=== PATIENT | male | born 1960 | race Caucasian/White ===

== ENCOUNTER 2017-07-22 21:44 | Emergency (ER) | payer OTHER ==
--- NOTE | 2017-07-22 22:43 | CT Preliminary Report ---
Exam: CT HEAD W/O IMPRESSION: No acute intracranial process. [facility] SITE ID: [id number]
--- NOTE | 2017-07-22 22:50 | CT Report ---
EXAM: CT HEAD EXAM DATE: 07/22/2017 10:16 PM. CLINICAL HISTORY: Left facial numbness. COMPARISON: None. TECHNIQUE: Multiaxial CT images were obtained from the foramen magnum to the vertex. Reformats: Coron al. IV contrast: None. In accordance with CT protocol optimization, one or more of the following dose reduction techniques w ere utilized for this exam: automated exposure control, adjustment of mA and/or KV based on patient s ize, or use of iterative reconstructive technique. FINDINGS: Parenchyma: No intraparenchymal hemorrhage. No evidence of mass, midline shift, or CT findings of inf arction. Reed-white differentiation is distinct. Extraaxial Spaces: Normal for age. No subdural or epidural collections identified. Ventricles: Normal in size and position. Sinuses and Orbits: A moderate-sized mucus retention cyst is noted in the right sphenoid sinus. The o rbits and mastoid sinuses are not opacified. Bones: No evidence of fracture or calvarial defect. IMPRESSION: No acute intracranial process. [facility] Referring Provider Line: [phone] SITE ID: [id number]
[2017-07-22] MEDS ORDERED: predniSONE 20 MG TABLET PO STA (23:03)
[2017-07-22] MEDS ORDERED: ACYCLOVIR 200 MG CAPSULE PO STA (23:03)
[2017-07-22] MEDS ORDERED: AZITHROMYCIN 250 MG TABLET PO STA (23:03)
--- NOTE | 2017-07-22 23:06 | ED Physician Documentation ---
PD HPI FOCAL NEURO - Stated complaint Stated Complaint: FACE NUMBNESS - Chief complaint Chief Complaint: Neuro - History obtained from History obtained from: Patient, Family - History of Present Illness Timing - onset: Today Timing - details: Gradual onset, Still present Severity of deficit: Moderate Weakness: Face, Left Associated symptoms: No: Headache, Nausea / vomiting, Seizure, Syncope, Head injury Contributing factors: negative: Anticoagulated, Vascular dz, Atrial fibrillation , Prosthetic heart valve Similar symptoms before: Has not had sx before Recently seen: Clinic - Additional information Additional information: Patient is a 57 year old male who is presenting to the emergency department for left sided facial droop. According to patient and family patient was at the doctor's office today for ear pain. Patient treated with some drops and later on that evening he started to developed isolated left sided facial droop. Patient denied any other focal neurological deficits. Review of Systems Ten Systems: 10 systems reviewed and negative Constitutional: denies: Fever, Chills Eyes: denies: Decreased vision, Photophobia Ears: reports: Loss of hearing, Ear pain. denies: Drainage/discharge Nose: reports: Congestion. denies: Rhinorrhea / runny nose Neurologic: reports: Focal weakness, Numbness. denies: Headache, Head injury PD PAST MEDICAL HISTORY - Past Medical History Past Medical History: Yes Cardiovascular: High cholesterol - Past Surgical History Past Surgical History: No - Present Medications Home Medications: Ambulatory Orders Medication Instructions Recorded Confirmed Atorvastatin Calcium [Lipitor] 20 mg PO DAILY 05/15/14 05/15/14 predniSONE [Deltasone] 40 mg PO DAILY 5 Days tablet 05/15/14 Acyclovir 1,000 mg PO TID 7 Days capsule 07/22/17 Azithromycin [Zithromax] 250 mg PO DAILY #4 tablet 07/22/17 predniSONE [Prednisone] 60 mg PO DAILY 7 Days tablet 07/22/17 - Allergies Allergies/Adverse Reactions: Allergies Allergy/AdvReac Type Severity Reaction Status Date / Time doxycycline Allergy Rash Verified 05/15/14 19:20 - Social History Does the pt smoke?: No Smoking Status: Never smoker Does the pt drink ETOH?: No Does the pt have substance abuse?: No - Immunizations Immunizations are current?: Yes - POLST Patient has POLST: No PD ED PE NORMAL - Vitals Vital signs reviewed: Yes - General General: Alert and oriented X 3, Well developed/nourished - HEENT HEENT: Atraumatic, PERRL - Neck Neck: Supple, no meningeal sign - Cardiac Cardiac: RRR - Respiratory Respiratory: No respiratory distress - Derm Derm: Normal color, Warm and dry - Extremities Extremities: No deformity - Neuro Neuro: Alert and oriented X 3 Eye Opening: Spontaneous Motor: Obeys Commands Verbal: Oriented GCS Score: 15 PD ED PE EXPANDED - HEENT HEENT: L TM red, L TM retracted - Neuro Neuro: Alert and Oriented X 3, Left face, CN deficit (isolated left sided facial droop involving the forehead). No: Normal motor, Normal Sensation, CNII- XII intact NIHSS - Level of Consciousness Level of consciousness: (0) Alert, Keenly responsive LOC Questions: (0) Answers both Q's correct LOC Commands: (0) Performs both correctly - Gaze Best Gaze: (0) Normal - Visual Visual: (0) No loss - Facial Palsy Facial Palsy: (2) Partial paralysis - Motor Arms (both separate) Motor Arm (right): (0) No drift Motor Arm (left): (0) No drift - Motor Legs (both separate) Motor Leg (right): (0) No drift Motor Leg (left): (0) No drift - Limb Ataxia Limb Ataxia: (0) Absent - Sensory Sensory: (0) Normal - Best Language Best Language: (0) No aphasia - Dysarthria Dysarthria: (0) Normal - Extinction and Inattention (formally neg Extinction and inattention: (0) No abnormality - Total Score/Results Total Score/Result: 2 Results - Vitals Vitals: Vital Signs - 24 hr 07/22/17 07/22/17 07/22/17 21:50 21:59 22:30 Temperature 36.0 C L Heart Rate 72 76 64 Respiratory 18 17 18 Rate Blood Pressure 136/91 H 145/85 H 127/75 O2 Saturation 96 98 96 07/22/17 23:12 Temperature Heart Rate 71 Respiratory 19 Rate Blood Pressure 120/82 H O2 Saturation 98 Oxygen O2 Source Room air - Rads (name of study) ct head Radiology: Final report received (normal) PD MEDICAL DECISION MAKING - ED course Complexity details: reviewed old records, reviewed results, re-evaluated patient , considered differential, d/w patient, d/w family ED course: Patient was seen and examined at bedside. Patient was well appearing aside from his facial droop. Patient had no other neurological deficits. Imaging was ordered and was within normal limits. Patient's symptoms were secondary to reid's palsy and due to patient's recent ear pain and symptoms patient was covere with azithromycin as well as prednisone and acyclovir. Patient and family were educated on the findings. patient required no further work up and was stable for discharge with outpatient follow up. Departure - Departure Disposition: 01 Home, Self Care Clinical Impression: Reid's palsy Condition: Good Instructions: ED [place] Palsy Follow-Up: MEAGHAN AWAD MD [Primary Care Provider] - As Needed Prescriptions: Acyclovir 1,000 mg PO TID 7 Days capsule Azithromycin [Zithromax] 250 mg PO DAILY #4 tablet predniSONE [Prednisone] 60 mg PO DAILY 7 Days tablet Comments: Your diagnostics today were within normal limits. Your symptoms are being caused by reid's palsy which is due to your facial nerve as opposed to your brain. It is possibly secondary to an ear infection that you will be treated for. You will also be on steroids and an antiviral for the next week. You should follow up with your doctor if your symptoms persist. You may return to the emergency department at any time for new, worsening or uncontrollable symptoms. Discharge Date/Time: 07/22/17 23:18
[2017-07-22 23:12] VITALS: BP 120/82
== END 2017-07-22 23:18 | disposition home or self-care (01) ==
LOC: ED 21:44
DX: G51.0 Bell's palsy (principal)
CPT/HCPCS: 70450; 99283; 99284; A9270; J7512

== ENCOUNTER 2018-08-25 15:15 | Outpatient (CLI) | payer OTHER | END 2018-08-25 15:16 | disposition home or self-care (01) | LOC: SC 15:15 | PROVIDERS: ATTEND Internal Medicine Pulmonary Disease | DX: G47.33 Obstructive sleep apnea (adult) (pediatric) (principal) | CPT/HCPCS: 99203; 99212 ==

== ENCOUNTER 2019-09-10 12:52 | Emergency (ER) | payer OTHER ==
[2019-09-10] MEDS ORDERED: BUFFERED LIDOCAINE 10 ML SYRINGE SUBQ STA (13:04)
--- NOTE | 2019-09-10 13:07 | ED Physician Documentation ---
PD HPI UPPER EXT INJURY - Stated complaint Stated Complaint: RT FINGER INJURY - Chief complaint Chief Complaint: Laceration - History obtained from History obtained from: Patient - History of Present Illness Location: Right, Finger Type of injury: Crush Where injury occurred: Home Timing - onset: How many hours ago (1) Improved by: Immobilization Worsened by: Moving, Palpating - Additonal information Additional information: 59-year-old male presents to the emergency department with a right ring finger crush injury after an approximately 45 pound brick fell on top of his finger. He has an approximately 1 cm laceration on the fat pad of the distal ring finger. He has intact sensation. Normal movement and flexion of the finger at all joints. No nail bed injury. Tetanus is up-to-date in 2016. Denies any history of hypertension or diabetes. Patient is right hand dominate. Review of Systems Constitutional: reports: Reviewed and negative Cardiac: reports: Reviewed and negative Respiratory: reports: Dyspnea Skin: reports: Laceration (s) (fat pad right ring finger) Musculoskeletal: reports: Extremity pain PD PAST MEDICAL HISTORY - Past Medical History Cardiovascular: High cholesterol - Past Surgical History Past Surgical History: No - Present Medications Home Medications: Ambulatory Orders Medication Instructions Recorded Confirmed Atorvastatin Calcium [Lipitor] 20 mg PO DAILY 05/15/14 05/15/14 predniSONE [Deltasone] 40 mg PO DAILY 5 Days tablet 05/15/14 Acyclovir 1,000 mg PO TID 7 Days capsule 07/22/17 Azithromycin [Zithromax] 250 mg PO DAILY #4 tablet 07/22/17 predniSONE [Prednisone] 60 mg PO DAILY 7 Days tablet 07/22/17 - Allergies Allergies/Adverse Reactions: Allergies Allergy/AdvReac Type Severity Reaction Status Date / Time doxycycline Allergy Rash Verified 09/10/19 13:02 - Social History Does the pt smoke?: No Smoking Status: Never smoker Does the pt drink ETOH?: No Does the pt have substance abuse?: No - Immunizations Immunizations are current?: Yes - POLST Patient has POLST: No PD ED PE NORMAL - General General: Alert and oriented X 3, No acute distress, Well developed/nourished - HEENT HEENT: Atraumatic - Cardiac Cardiac: RRR - Respiratory Respiratory: No respiratory distress (1 cm fat pad laceration on distal right ring finger. Normal flexion extension against resistance at MCP PIP and DIP. Brisk cap refill. No nailbed injury.) - Extremities Extremities: Normal ROM s pain, Other (1 cm laceration to right distal ring finger fat pad. No nailbed involvement.) Results - Vitals Vitals: Vital Signs - 24 hr 09/10/19 12:58 Temperature 35.7 C L Heart Rate 78 Respiratory 16 Rate Blood Pressure 156/98 H O2 Saturation 96 Oxygen O2 Source Room air - Rads (name of study) right finger ring xray Radiology: Final report received (No acute fracture dislocation) Procedures - Laceration (location) right ring finger Wound type: Linear Neurovascular status: Sensory intact, Motor intact, Vascular intact Tendon involvement: Tendon intact Anesthesia: Lidocaine 1% Wound Preparation: Chlorhexadine, Irrigated copiously NS Skin layer closure: Nylon, Sutures - enter # (3) Other: Patient tolerated well, No complications Complexity: Simple (1 cm laceration distal right ring finger fat pad with no nail bed involvment. 3 sutures placed to close wound) PD MEDICAL DECISION MAKING - ED course Complexity details: re-evaluated patient, d/w patient, d/w family ED course: 59-year-old male comes to the emergency department with a right ring finger distal fat pad laceration after a heavy brick crushed his finger. -X-ray shows no fracture or dislocation.Small laceration easily closed with 3 four-point 0 nylon sutures. Patient's tetanus is up-to-date. Given timely closure of wound and relatively clean appearance will defer any prophylactic antibiotics routine wound care and emergent return precautions for concerns of infection discussed. Departure - Departure Disposition: 01 Home, Self Care Clinical Impression: Finger laceration Qualifiers: Encounter type: initial encounter Finger: ring finger Damage to nail status: without damage Foreign body presence: without foreign body Laterality: right Qualified Code(s): S61.214A - Laceration without foreign body of right ring finger without damage to nail, initial encounter Condition: Stable Instructions: ED Laceration All Comments: Bruno the sutures in your finger should be removed 7 to 10 days. In 24 hours you may gently wash the finger with warm soap and water then apply any antibiotic ointment and a simple bandage. Please wear the aluminum finger splint to help protect the finger while it heals. You may take Tylenol or ibuprofen [id number] for pain relief. This is time closure of the wound no antibiotics are indicated today however if you have finger redness swelling increased pain milky drainage or red streaking return to the emergency department for a second look.
[2019-09-10] MEDS ORDERED: BACITRACIN ZINC OINT 1 PACKET TOP STA (13:27)
--- NOTE | 2019-09-10 13:31 | XRAY Report ---
PROCEDURE: Finger(s) RT INDICATIONS: compression trauma/ r/o rx ring finger TECHNIQUE: AP hand, 3 views of the fourth finger(s) acquired. COMPARISON: None FINDINGS: Bones: Old ulnar styloid fracture is present. No suspicious bony lesions. Soft tissues: No suspicious soft tissue calcifications. IMPRESSION: No visualized acute fracture or dislocation. However, occult injury cannot be excluded. Recommend pavan rt interval imaging follow-up in 7-10 days as clinically indicated for additional evaluation. Reviewed by: Aure Calixto MD on 09/10/2019 1:29 PM PDT Approved by: Aure Calixto MD on 09/10/2019 1:29 PM PDT Station ID: [id number]
[2019-09-10 14:39] VITALS: BP 165/95
== END 2019-09-10 13:54 | disposition home or self-care (01) ==
LOC: ED 12:52
DX: S61.214A Laceration without foreign body of right ring finger without damage to nail, initial encounter (principal); W20.8XXA Other cause of strike by thrown, projected or falling object, initial encounter; Y93.H3 Activity, building and construction; Y92.009 Unspecified place in unspecified non-institutional (private) residence as the place of occurrence of the external cause
CPT/HCPCS: 12001; 73140; 99283

== ENCOUNTER 2020-06-13 08:16 | Outpatient (CLI) | payer OTHER | END 2020-06-13 23:59 | disposition EMS.NT | LOC: EMS 08:16 | DX: T17.220A Food in pharynx causing asphyxiation, initial encounter (principal); X58.XXXA Exposure to other specified factors, initial encounter; Y92.009 Unspecified place in unspecified non-institutional (private) residence as the place of occurrence of the external cause ==

== ENCOUNTER 2023-05-14 15:00 | Outpatient (CLI) | payer OTHER | END 2023-05-14 15:01 | disposition home or self-care (01) | LOC: DI 15:00 | PROVIDERS: ATTEND Family Medicine | DX: I11.9 Hypertensive heart disease without heart failure (principal); R01.1 Cardiac murmur, unspecified | CPT/HCPCS: 93307 ==

== ENCOUNTER 2023-06-24 12:43 | Outpatient (CLI) | payer OTHER ==
--- NOTE | 2023-06-24 16:55 | XRAY Report ---
PROCEDURE: Knee 3V RT INDICATIONS: SPRAIN OF OTHER SPECIFIED PARTS OF RIGHT KNEE TECHNIQUE: 3 views of the knee were acquired. COMPARISON: None. FINDINGS: Bones: No acute fractures or dislocations. No suspicious bony lesions. Small suprapatellar enthes ophyte. Mild tricompartmental joint space narrowing and marginal osteophyte formation. Soft tissues: No knee joint effusion. No suspicious soft tissue calcifications. IMPRESSION: 1.No acute osseous abnormality. If symptoms persist or there is continued clinical concern, further e valuation with MRI or CT may be helpful. 2.Mild tricompartmental osteoarthrosis. Reviewed by: Florentino Lamar MD on 06/24/2023 4:53 PM PDT Approved by: Florentino Lamar MD on 06/24/2023 4:53 PM PDT Station ID: [id number]
== END 2023-06-24 23:59 | disposition home or self-care (01) ==
LOC: DI.N 12:43
PROVIDERS: ATTEND Physician Assistant Medical
DX: S83.8X1A Sprain of other specified parts of right knee, initial encounter (principal); M17.11 Unilateral primary osteoarthritis, right knee